=== PATIENT | female | born 2000 | race Caucasian/White ===

== ENCOUNTER 2020-07-17 02:22 | Emergency (ER) | payer OTHER ==
[~2020-07-17] VITALS: Ht 160 cm; Wt 62.1 kg
--- NOTE | 2020-07-17 02:31 | NUR ---
PT BIBSELF C/O SOB X2 DAYS. PT STATES "I THOUGHT IT WAS JUST MY ASTHMA BUT ITS GETTING WORSE" PT USED ALBUTEROL INHALER RN ORTHO, NO RELIEF. PT ALSO C/O DRY COUGH, NO FEVER. O2 SAT 100% ROOM AIR. PT TEARFUL ON ARRIVAL, APPEARS ANXIOUS. PT STATES "I'M SCARED I HAVE COVID", DENIES CLOSE CONTACT. PT AAOX4. RESPIRATIONS EVEN AND UNLABORED. SKIN INTACT. AMBULATORY WITH STEADY GAIT. VITAL SIGNS STABLE. NO ACUTE DISTRESS NOTED AT THIS TIME. PLACED ON MONITOR, WILL CONTINUE TO MONITOR
--- NOTE | 2020-07-17 02:36 | NUR ---
MD AT BEDSIDE FOR EVALUATION
--- NOTE | 2020-07-17 02:41 | NUR ---
CANDACE (FATHER) CONTACT INFORMATION: [phone]
--- NOTE | 2020-07-17 03:55 | NUR ---
Patient discharged to home in stable condition. Written and verbal after care instructions given. Patient verbalizes understanding of instruction.Pt ambulatory with a steady gait
[2020-07-17 03:56] VITALS: BP 141/88
== END 2020-07-17 03:57 | disposition home or self-care (01) ==
LOC: ER 02:28
DX: J45.909 Unspecified asthma, uncomplicated (principal); F41.9 Anxiety disorder, unspecified; Z88.2 Allergy status to sulfonamides
CPT/HCPCS: 71045-TC

== ENCOUNTER 2021-04-22 21:18 | Emergency (ER) | payer OTHER ==
[~2021-04-22] VITALS: Ht 162.6 cm; Wt 61.2 kg
[2021-04-22 21:25] VITALS: BP 138/70
[2021-04-22 23:47] LABS: BILIRUBIN,URINE Negative (NEGATIVE); COLOR,URINE YELLOW (YELLOW); LEUKOCYTE ESTERASE ,URINE Trace (NEGATIVE); NITRITE, URINE Negative (NEGATIVE); PROTEIN,URINE Negative (NEGATIVE); UGLUCOSE Negative (NEGATIVE); UROBILINOGEN,URINE 0.2 EU/dL (0.2)
[2021-04-22] MEDS ORDERED: ONDANSETRON 4 MG TAB.RAPDIS ONE (23:52)
[2021-04-22] MEDS: ONDANSETRON 4 MG TAB.RAPDIS SL ONE (23:56)
[2021-04-23 00:09] LABS: BACTERIA,URINE Few /HPF (None Seen); SQUAMOUS EPITHELIAL CELL,UR Few /HPF (None Seen)
[2021-04-23] MEDS ORDERED: ONDA4TAB5 PO (00:17)
[2021-04-23] MEDS ORDERED: NITR100C6 PO (00:17)
== END 2021-04-23 00:33 | disposition home or self-care (01) ==
LOC: ER 21:23
DX: N39.0 Urinary tract infection, site not specified (principal); J45.909 Unspecified asthma, uncomplicated; D64.9 Anemia, unspecified; Z88.2 Allergy status to sulfonamides; Z88.1 Allergy status to other antibiotic agents
CPT/HCPCS: 81001; 84703; 99283; Q0162